=== PATIENT | female | born 1970 | race Hispanic/Latino ===

== ENCOUNTER 2019-12-14 11:11 | Emergency (ER) | payer SELFPAY ==
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
[2019-12-14 11:25] VITALS: BP 121/79
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
--- NOTE | 2019-12-14 12:07 | XRay Report ---
LUMBAR SPINE 3 VIEWS INDICATION / CLINICAL INFORMATION: pain. COMPARISON: None available. FINDINGS: VERTEBRAE: Mild mid wedge compression fractures of L1 and L2 no fracture lines identified. No signif icant malalignment. DISC SPACES / FACET JOINTS:Moderate multilevel facet joint arthropathy. PARASPINAL SOFT TISSUES:No significant abnormality. ADDITIONAL FINDINGS: None. IMPRESSION: Mild mid wedge compression fractures of L1 and L2 of uncertain age. MRI or nuclear medici ne studies would be more sensitive in determining age of fractures. Moderate multilevel facet joint a rthropathy. Signer Name: Manan Jane MD Signed: 12/14/2019 12:03 PM Workstation Name: [id number]
== END 2019-12-14 13:05 | disposition home or self-care (01) ==
LOC: ED 11:11
DX: T14.8XXA Other injury of unspecified body region, initial encounter (principal); R07.89 Other chest pain; M54.5 Low back pain; J44.9 Chronic obstructive pulmonary disease, unspecified; F17.200 Nicotine dependence, unspecified, uncomplicated; Z79.899 Other long term (current) drug therapy; Z88.8 Allergy status to other drugs, medicaments and biological substances; V49.49XA Driver injured in collision with other motor vehicles in traffic accident, initial encounter; Y93.89 Activity, other specified; Y92.410 Unspecified street and highway as the place of occurrence of the external cause; Y99.8 Other external cause status
CPT/HCPCS: 71046; 72100

== ENCOUNTER 2019-12-17 15:15 | Emergency (ER) | payer SELFPAY ==
[2019-12-17 15:40] VITALS: BP 110/81
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
== END 2019-12-17 15:56 | disposition left against medical advice (07) ==
LOC: ED 15:15
DX: G89.29 Other chronic pain (principal); M54.9 Dorsalgia, unspecified
CPT/HCPCS: 99283